=== PATIENT | male | born 1975 | race Caucasian/White ===

== ENCOUNTER 2019-02-04 20:40 | Emergency (ER) | payer SELFPAY ==
[~2019-02-04] VITALS: Ht 152.4 cm; Wt 75.3 kg
[2019-02-04 20:55] VITALS: BP 122/92; PULSE 106; RESP 18; Ht 152.4 cm; Wt 75.3 kg
== END 2019-02-04 22:38 | disposition left against medical advice (07) ==
LOC: E/R 20:40
DX: Z53.21 Procedure and treatment not carried out due to patient leaving prior to being seen by health care provider (principal)